=== PATIENT | female | born 1970 | race Caucasian/White ===

== ENCOUNTER 2017-01-20 18:29 | Emergency (ER) | payer OTHER ==
[~2017-01-20] VITALS: Wt 52.2 kg
[~2017-01-20 18:29] MED LIST: ANAPROX DS550 MG PO; ANUSOL1 EACH PO; ASPIRIN ENTERIC81 M1 PO; AURALGAN 54 MG/10 ML OT; BACTRIM DS 8001 TA1 PO; BACTROBAN CREAM15 GM PO; CIPRO500 MG PO; CIPRODEX 0.3%-7.5 ML OT; CLARITIN-D 10 M1 T21 PO; CLARITIN-D 12 H1 TAB PO; CLARITIN10 MG PO; DOXYCYCLINE MO100 MG PO; FLAGYL500 MG PO; LEVSIN0.125 M1 SL; Lortab 5/500 501 TAB PO; MOTRIN600 MG PO; MOTRIN800 MG PO; NKHM; PEPCID20 MG PO; PERCOCET 325 MG1 TA2 PO; PREDNISONE20 M1 PO; Phenergan25 MG PO; ROBITUSSIN AC 110 ML PO; TRAMADOL HCL50 MG PO; TYLENOL325 M1 PO; ZITHROMAX Z PA250 MG PO; ZITHROMAX250 MG PO
[2017-01-20 18:56] LABS: BASO # 0.1 10*3/uL (0.0-0.1); BASO % 0.6 % (0.0-1.0); EOS # 0.2 10*3/uL (0.0-0.4); EOS % 2.2 % (1.0-4.0); HEMATOCRIT 42.2 % (37.0-47.0); HEMOGLOBIN 14.8 g/dl (12.0-16.0); LYMPH # 2.8 10*3/uL (1.3-4.4); MEAN CELL VOLUME 90.9 fl (81.0-99.0); MEAN CORPUSCULAR HGB 31.9 pg (27.0-31.0); MEAN CORPUSCULAR HGB CONC 35.1 g/dl (33.0-37.0); MEAN PLATELET VOLUME 10.8 fl (9.6-12.3); MONO # 1.3 10*3/uL (0.1-1.0); MONO % 11.3 % (3.0-9.0); NEUT # 6.7 10*3/uL (2.3-7.9); NEUT % 60.6 % (47.0-73.0); PLATELET COUNT AUTOMATED 272 10*3/uL (130-400); RED BLOOD COUNT 4.64 10*6/uL (4.10-5.10); RED CELL DISTRI WIDTH 12.7 % (0-14.5)
[2017-01-20 19:33] LABS: ALKALINE PHOSPHATASE 89 U/L (45-117); BUN 7 mg/dl (7-24); CHLORIDE 108 mmol/L (98-107); CREATININE 0.73 mg/dL (0.55-1.02); LIPASE 80 U/L (73-393); POTASSIUM 3.5 mmol/L (3.5-5.1); SGOT/AST 28 IU/L (3-35); SGPT/ALT 31 U/L (12-78); SODIUM 141 mmol/L (136-145); TOTAL PROTEIN 7.1 gm/dL (6.4-8.2)
[2017-01-20] MEDS ORDERED: ROBITUSSIN DM 105 ML PO (19:39)
[2017-01-20] MEDS ORDERED: PHENERGAN25 M3 PO (19:39)
[2017-01-20] MEDS ORDERED: FLONASE ALLERG9.9 ML NAS (19:39)
[2017-01-20] MEDS ORDERED: CLARITIN10 MG PO (19:39)
[2017-01-20 21:38] VITALS: BP 103/68
== END 2017-01-20 21:55 | disposition home or self-care (01) ==
LOC: ED 18:29
PROVIDERS: Nurse Practitioner Family
DX: B34.9 Viral infection, unspecified (principal); R03.0 Elevated blood-pressure reading, without diagnosis of hypertension; Z88.0 Allergy status to penicillin; Z91.040 Latex allergy status; Z88.8 Allergy status to other drugs, medicaments and biological substances

== ENCOUNTER 2017-02-06 21:40 | Inpatient (IN) | payer OTHER ==
[~2017-02-06] VITALS: Ht 147.3 cm; Wt 64.2 kg
[~2017-02-06 21:40] MED LIST changes: +FLONASE ALLERG9.9 ML NAS; +PHENERGAN25 M3 PO; +ROBITUSSIN DM 105 ML PO
[2017-02-06 21:44] VITALS: BP 114/72
[2017-02-06 22:03] LABS: BASO # 0.1 10*3/uL (0.0-0.1); BASO % 0.5 % (0.0-1.0); EOS # 0.3 10*3/uL (0.0-0.4); EOS % 2.9 % (1.0-4.0); HEMATOCRIT 40.9 % (37.0-47.0); HEMOGLOBIN 14.1 g/dl (12.0-16.0); LYMPH # 2.9 10*3/uL (1.3-4.4); LYMPH % 26.5 % (27.0-41.0); MEAN CELL VOLUME 93.2 fl (81.0-99.0); MEAN CORPUSCULAR HGB 32.1 pg (27.0-31.0); MEAN CORPUSCULAR HGB CONC 34.5 g/dl (33.0-37.0); MONO % 9.1 % (3.0-9.0); NEUT # 6.6 10*3/uL (2.3-7.9); NEUT % 60.6 % (47.0-73.0); PLATELET COUNT AUTOMATED 294 10*3/uL (130-400); RED BLOOD COUNT 4.39 10*6/uL (4.10-5.10); RED CELL DISTRI WIDTH 12.8 % (0-14.5); WHITE BLOOD COUNT 10.9 10*3/uL (4.8-10.8)
[2017-02-06 22:13] LABS: ACT PARTIAL THROMBO TIME 26.4 SECONDS (20.8-31.5)
[2017-02-06 22:20] LABS: ALBUMIN 3.1 gm/dl (3.1-4.5); BUN 18 mg/dl (7-24); CHLORIDE 109 mmol/L (98-107); CREATININE 0.82 mg/dL (0.55-1.02); POTASSIUM 3.8 mmol/L (3.5-5.1); SGOT/AST 12 IU/L (3-35); SGPT/ALT 28 U/L (12-78); SODIUM 141 mmol/L (136-145); TOTAL PROTEIN 7.3 gm/dL (6.4-8.2)
[2017-02-06 22:22] LABS: ALKALINE PHOSPHATASE 102 U/L (45-117)
[2017-02-06 22:23] LABS: TROPONIN I < 0.015 ng/ml (<0.045)
--- NOTE | 2017-02-06 22:39 | NUR ---
PT STATES CHEST PAIN IS RELIEVED. BUT PT STILL HAS PAIN IN LEFT ARM
[2017-02-07] VITALS: BP 125/74
--- NOTE | 2017-02-07 00:08 | NUR ---
REPORT GIVEN TO KYAW MARION
[2017-02-07 00:45] VITALS: BP 131/70; BP 133/70; BP 138/70
--- NOTE | 2017-02-07 01:03 | NUR ---
PATIENT STATES SHE DOES NOT TAKE ANY HOME MEDICATIONS, PRESCRIBED OR OVER THE COUNTER.
[2017-02-07 03:49] LABS: BASO # 0.1 10*3/uL (0.0-0.1); BASO % 0.7 % (0.0-1.0); EOS # 0.3 10*3/uL (0.0-0.4); HEMATOCRIT 40.6 % (37.0-47.0); HEMOGLOBIN 14.1 g/dl (12.0-16.0); LYMPH # 3.4 10*3/uL (1.3-4.4); LYMPH % 35.6 % (27.0-41.0); MEAN CELL VOLUME 91.4 fl (81.0-99.0); MEAN CORPUSCULAR HGB 31.8 pg (27.0-31.0); MEAN CORPUSCULAR HGB CONC 34.7 g/dl (33.0-37.0); MEAN PLATELET VOLUME 9.9 fl (9.6-12.3); MONO % 10.1 % (3.0-9.0); NEUT # 4.9 10*3/uL (2.3-7.9); NEUT % 50.4 % (47.0-73.0); PLATELET COUNT AUTOMATED 283 10*3/uL (130-400); RED BLOOD COUNT 4.44 10*6/uL (4.10-5.10); RED CELL DISTRI WIDTH 12.9 % (0-14.5); WHITE BLOOD COUNT 9.6 10*3/uL (4.8-10.8)
[2017-02-07 04:00] VITALS: BP 143/68
[2017-02-07 04:02] LABS: BUN 17 mg/dl (7-24); CHLORIDE 109 mmol/L (98-107); CREATININE 0.75 mg/dL (0.55-1.02); SODIUM 141 mmol/L (136-145)
[2017-02-07 04:07] LABS: CHOLESTEROL 236 mg/dL (<200); HDL CHOLESTEROL 58 mg/dl (40-60); LDL CHOLESTEROL 145 mg/dL (9-159); PHOSPHOROUS 3.5 mg/dL (2.5-4.9); TRIGLYCERIDES 167 mg/dl (<150); VLDL CHOLESTEROL 33 mg/dL (6-40)
[2017-02-07 08:00] VITALS: BP 124/65
--- NOTE | 2017-02-07 08:30 | NUR ---
Foot Roentgenologist in to talk to patient. Patient states lives at HOME ALONE with . There are 0 steps in the home. Physician: DR OGDEN Pharmacy: [facility] services: NONE Patient's level of ADLs: INDEPENDENT Patient has working utilities: YES DME: NONE Follow-up physician's appointment after d/c: WILL BE MADE PRIOR TO DC Does patient want to access PORTAL?: Discharge plan HOME. NOAM WILSON
--- NOTE | 2017-02-07 10:00 | NUR ---
AM MEDS GIVEN.
[2017-02-07 12:00] VITALS: BP 127/69
[2017-02-07] MEDS ORDERED: VITAMIN D31000 UNI1 PO (12:29)
[2017-02-07] MEDS ORDERED: ASPIRIN CHEWABL81 MG PO (12:29)
--- NOTE | 2017-02-07 13:32 | NUR ---
HEP LOCK REMOVED FOR DISCHARGE. Discharge instructions reviewed with patient/family. Patient receptive and verbalizes understanding. Follow-up care arranged. Written instructions given to patient/family. JOE CAMPOVERDE
== END 2017-02-07 13:32 | disposition home or self-care (01) | DRG 206 ==
LOC: ED 21:40 → 5E 23:47 → EDHOLD 23:47 → 5E 23:56
PROVIDERS: Emergency Medicine; Student in an Organized Health Care Education/Training Program; ADMIT Internal Medicine
DX: M94.0 Chondrocostal junction syndrome [Tietze] (principal); E44.0 Moderate protein-calorie malnutrition; E87.8 Other disorders of electrolyte and fluid balance, not elsewhere classified; D72.829 Elevated white blood cell count, unspecified; K21.9 Gastro-esophageal reflux disease without esophagitis; F41.9 Anxiety disorder, unspecified; Z79.82 Long term (current) use of aspirin; Z79.899 Other long term (current) drug therapy; Z88.0 Allergy status to penicillin; Z88.1 Allergy status to other antibiotic agents; Z88.8 Allergy status to other drugs, medicaments and biological substances; Z91.040 Latex allergy status; Z98.51 Tubal ligation status; Z90.710 Acquired absence of both cervix and uterus; Z90.49 Acquired absence of other specified parts of digestive tract; Z90.721 Acquired absence of ovaries, unilateral; Z98.891 History of uterine scar from previous surgery; Z82.3 Family history of stroke; Z82.49 Family history of ischemic heart disease and other diseases of the circulatory system; Z68.29 Body mass index [BMI] 29.0-29.9, adult

== ENCOUNTER 2017-07-13 10:41 | Emergency (ER) | payer OTHER ==
[~2017-07-13] VITALS: Wt 52.2 kg
[~2017-07-13 10:41] MED LIST changes: +ASPIRIN CHEWABL81 MG PO; +VITAMIN D31000 UNI1 PO
[2017-07-13 10:54] VITALS: BP 147/72
[2017-07-13 11:51] LABS: BASO # 0.1 10*3/uL (0.0-0.1); BASO % 0.9 % (0.0-1.0); EOS # 0.2 10*3/uL (0.0-0.4); EOS % 2.4 % (1.0-4.0); HEMATOCRIT 43.7 % (37.0-47.0); HEMOGLOBIN 15.7 g/dl (12.0-16.0); LYMPH % 23.6 % (27.0-41.0); MEAN CELL VOLUME 89.7 fl (81.0-99.0); MEAN CORPUSCULAR HGB 32.2 pg (27.0-31.0); MEAN CORPUSCULAR HGB CONC 35.9 g/dl (33.0-37.0); MEAN PLATELET VOLUME 11.6 fl (9.6-12.3); MONO # 0.9 10*3/uL (0.1-1.0); MONO % 10.2 % (3.0-9.0); NEUT # 5.3 10*3/uL (2.3-7.9); NEUT % 62.7 % (47.0-73.0); PLATELET COUNT AUTOMATED 318 10*3/uL (130-400); RED BLOOD COUNT 4.87 10*6/uL (4.10-5.10); RED CELL DISTRI WIDTH 12.7 % (0-14.5); WHITE BLOOD COUNT 8.5 10*3/uL (4.8-10.8)
[2017-07-13 12:45] LABS: ACT PARTIAL THROMBO TIME 25.7 SECONDS (20.8-31.5)
[2017-07-13 12:53] LABS: ALBUMIN 3.5 gm/dl (3.1-4.5); ALKALINE PHOSPHATASE 85 U/L (45-117); BUN 12 mg/dl (7-24); CHLORIDE 109 mmol/L (98-107); CREATININE 0.99 mg/dL (0.55-1.02); LIPASE 521 U/L (73-393); POTASSIUM 3.7 mmol/L (3.5-5.1); SGOT/AST 17 IU/L (3-35); SGPT/ALT 22 U/L (12-78); SODIUM 140 mmol/L (136-145); TOTAL PROTEIN 7.3 gm/dL (6.4-8.2)
[2017-07-13 12:54] LABS: TROPONIN I < 0.015 ng/ml (<0.045)
[2017-07-13 13:00] LABS: BILIRUBIN NEGATIVE (NEGATIVE); BLOOD TRACE-INTACT (NEGATIVE); CLARITY CLOUDY (CLEAR); COLOR YELLOW (YELLOW); GLUCOSE NEGATIVE (NEGATIVE); KETONE NEGATIVE (NEGATIVE); LEUKO ESTERASE 2+ (NEGATIVE); NITRITE NEGATIVE (NEGATIVE); PH 6.5 (5.0-9.0); SPECIFIC GRAVITY 1.025 (1.005-1.030); UROBILINOGEN 0.2 E.U./dl (0.2-1.0)
[2017-07-13 13:08] LABS: BACTERIA TRACE; MUCOUS 2+
[2017-07-13 13:09] LABS: EPITHELIAL CELLS 16-20; WBC 21-30 wbc/hpf (0-5)
[2017-07-13] MEDS ORDERED: CIPRO500 MG PO (14:14)
== END 2017-07-13 13:16 | disposition home or self-care (01) ==
LOC: ED 10:41
PROVIDERS: Physician Assistant
DX: N39.0 Urinary tract infection, site not specified (principal); A59.9 Trichomoniasis, unspecified; Z88.0 Allergy status to penicillin; Z88.8 Allergy status to other drugs, medicaments and biological substances; Z91.040 Latex allergy status

== ENCOUNTER 2017-07-16 11:14 | Emergency (ER) | payer OTHER ==
[~2017-07-16] VITALS: Ht 147.3 cm; Wt 52.2 kg
[2017-07-16 11:56] LABS: BASO # 0.1 10*3/uL (0.0-0.1); BASO % 0.9 % (0.0-1.0); EOS % 0.7 % (1.0-4.0); HEMATOCRIT 42.4 % (37.0-47.0); HEMOGLOBIN 15.4 g/dl (12.0-16.0); LYMPH # 1.8 10*3/uL (1.3-4.4); LYMPH % 32.2 % (27.0-41.0); MEAN CELL VOLUME 88.1 fl (81.0-99.0); MEAN CORPUSCULAR HGB CONC 36.3 g/dl (33.0-37.0); MONO # 0.8 10*3/uL (0.1-1.0); MONO % 14.3 % (3.0-9.0); NEUT % 51.9 % (47.0-73.0); PLATELET COUNT AUTOMATED 220 10*3/uL (130-400); RED BLOOD COUNT 4.81 10*6/uL (4.10-5.10); RED CELL DISTRI WIDTH 12.3 % (0-14.5); WHITE BLOOD COUNT 5.7 10*3/uL (4.8-10.8)
[2017-07-16 12:15] LABS: ALBUMIN 3.6 gm/dl (3.1-4.5); ALKALINE PHOSPHATASE 83 U/L (45-117); BUN 10 mg/dl (7-24); CHLORIDE 105 mmol/L (98-107); CREATININE 0.86 mg/dL (0.55-1.02); POTASSIUM 3.6 mmol/L (3.5-5.1); SGOT/AST 28 IU/L (3-35); SGPT/ALT 28 U/L (12-78); SODIUM 138 mmol/L (136-145); TOTAL PROTEIN 7.3 gm/dL (6.4-8.2)
[2017-07-16 12:16] LABS: TROPONIN I < 0.015 ng/ml (<0.045)
[2017-07-16 14:13] VITALS: BP 109/71
[2017-07-16] MEDS ORDERED: LEVOFLOXACIN500 MG PO (15:00)
[2017-07-16] MEDS ORDERED: PHENERGAN25 M3 PO (15:00)
== END 2017-07-16 15:05 | disposition home or self-care (01) ==
LOC: ED 11:14
PROVIDERS: Emergency Medicine
DX: J18.9 Pneumonia, unspecified organism (principal); F17.200 Nicotine dependence, unspecified, uncomplicated; E78.00 Pure hypercholesterolemia, unspecified; Z88.0 Allergy status to penicillin; Z91.040 Latex allergy status; Z88.8 Allergy status to other drugs, medicaments and biological substances; Z98.51 Tubal ligation status; Z90.710 Acquired absence of both cervix and uterus; Z90.49 Acquired absence of other specified parts of digestive tract

== ENCOUNTER 2017-08-22 12:39 | Emergency (ER) | payer OTHER ==
[~2017-08-22] VITALS: Ht 147.3 cm; Wt 52.2 kg
[2017-08-22 12:39] VITALS: BP 106/63
[~2017-08-22 12:39] MED LIST changes: +LEVOFLOXACIN500 MG PO
[2017-08-22] MEDS ORDERED: PROAIR HFA8.5 GM INH (12:46)
[2017-08-22] MEDS ORDERED: CLARITHROMYCIN500 MG PO (12:46)
[2017-08-22] MEDS ORDERED: NAPROSYN500 MG PO (12:54)
[2017-08-22] MEDS ORDERED: CYCLOBENZAPRINE10 MG PO (12:54)
== END 2017-08-22 12:55 | disposition home or self-care (01) ==
LOC: ED 12:39
DX: M54.6 Pain in thoracic spine (principal); E78.00 Pure hypercholesterolemia, unspecified; Z98.51 Tubal ligation status; Z90.710 Acquired absence of both cervix and uterus; Z90.49 Acquired absence of other specified parts of digestive tract; Z98.890 Other specified postprocedural states; Z79.899 Other long term (current) drug therapy; Z88.0 Allergy status to penicillin; Z88.8 Allergy status to other drugs, medicaments and biological substances; Z91.040 Latex allergy status; Z79.82 Long term (current) use of aspirin

== ENCOUNTER → 2018-04-13 | Outpatient (CLI) | payer OTHER ==
[~2018-04-13] MED LIST changes: +CLARITHROMYCIN500 MG PO; +CYCLOBENZAPRINE10 MG PO; +NAPROSYN500 MG PO; +PROAIR HFA8.5 GM INH
[2018-04-13 08:42] LABS: HEMATOCRIT 41.8 % (37.0-47.0); HEMOGLOBIN 14.3 g/dl (12.0-16.0); MEAN CELL VOLUME 93.9 fl (81.0-99.0); MEAN CORPUSCULAR HGB 32.1 pg (27.0-31.0); MEAN CORPUSCULAR HGB CONC 34.2 g/dl (33.0-37.0); MEAN PLATELET VOLUME 9.9 fl (9.6-12.3); RED BLOOD COUNT 4.45 10*6/uL (4.10-5.10); RED CELL DISTRI WIDTH 12.7 % (0-14.5)
[2018-04-13 09:12] LABS: ALBUMIN 3.3 gm/dl (3.1-4.5); ALKALINE PHOSPHATASE 80 U/L (45-117); BUN 14 mg/dl (7-24); CHLORIDE 109 mmol/L (98-107); CHOLESTEROL 220 mg/dL (<200); CREATININE 0.81 mg/dL (0.55-1.02); HDL CHOLESTEROL 70 mg/dl (40-60); LDL CHOLESTEROL 136 mg/dL (9-159); POTASSIUM 4.1 mmol/L (3.5-5.1); SGOT/AST 21 IU/L (3-35); SGPT/ALT 22 U/L (12-78); SODIUM 141 mmol/L (136-145); TOTAL PROTEIN 7.1 gm/dL (6.4-8.2); TRIGLYCERIDES 70 mg/dl (<150); VLDL CHOLESTEROL 14 mg/dL (6-40)
== END | disposition home or self-care (01) ==
LOC: LAB 08:03
PROVIDERS: Family Medicine
DX: E78.00 Pure hypercholesterolemia, unspecified (principal); R10.9 Unspecified abdominal pain; E55.9 Vitamin D deficiency, unspecified; R53.83 Other fatigue

== ENCOUNTER 2018-04-20 17:48 | Emergency (ER) | payer OTHER ==
[~2018-04-20] VITALS: Ht 144.7 cm; Wt 51.3 kg
--- NOTE | ~2018-04-20 | EKG ---
[place], [place] ELECTROCARDIOGRAM REPORT NAME: BALAJI JEFFERS I UNIT #: [id number] ROOM: DOCTOR: LAMBERT DRAFT REPORT BIRTHDATE: [birth year] [facility] Test Date: 2018-04-20 Test Time: 17:52:21 Pat Name: BALAJI JEFFERS Department: Room: Gender: F Cloth Worker: Sandra Lewis : 1970 Requested By: JAMESON PARNELL Order Number: [id number] Reading MD: Gil Li MD Measurements Intervals [place] Rate: 83 P: 68 ME: 102 QRS: 94 QRSD: 79 T: 40 QT: 355 QTc: 418 Interpretive Statements Sinus rhythm Short ME interval Borderline right axis deviation Compared to ECG 12/05/2017 11:25:53 No significant changes Electronically Signed On 04-24-2018 11:49:35 PST by Gil Li MD CM:EKGRPT:ELECTROCARDIOGRAM REPORT [id number] JAMESON WEBB DRAFT REPORT JAMESON PARNELL DO
[2018-04-20 18:05] LABS: BASO # 0.1 10*3/uL (0.0-0.1); BASO % 0.6 % (0.0-1.0); EOS # 0.1 10*3/uL (0.0-0.4); EOS % 1.8 % (1.0-4.0); HEMATOCRIT 43.2 % (37.0-47.0); HEMOGLOBIN 15.1 g/dl (12.0-16.0); LYMPH # 1.7 10*3/uL (1.3-4.4); LYMPH % 20.8 % (27.0-41.0); MEAN CELL VOLUME 92.3 fl (81.0-99.0); MEAN CORPUSCULAR HGB 32.3 pg (27.0-31.0); MEAN PLATELET VOLUME 9.8 fl (9.6-12.3); MONO # 0.6 10*3/uL (0.1-1.0); NEUT # 5.5 10*3/uL (2.3-7.9); NEUT % 68.5 % (47.0-73.0); PLATELET COUNT AUTOMATED 269 10*3/uL (130-400); RED BLOOD COUNT 4.68 10*6/uL (4.10-5.10); RED CELL DISTRI WIDTH 12.6 % (0-14.5)
[2018-04-20 18:15] LABS: ACT PARTIAL THROMBO TIME 25.9 SECONDS (20.8-31.5)
[2018-04-20 18:22] LABS: BILIRUBIN 2+ (NEGATIVE); BLOOD TRACE-INTACT (NEGATIVE); CLARITY CLOUDY (CLEAR); GLUCOSE NEGATIVE (NEGATIVE); KETONE 3+ (NEGATIVE); LEUKO ESTERASE TRACE (NEGATIVE); NITRITE NEGATIVE (NEGATIVE); SPECIFIC GRAVITY >= 1.030 (1.005-1.030)
[2018-04-20 18:23] LABS: ALBUMIN 3.6 gm/dl (3.1-4.5); ALKALINE PHOSPHATASE 112 U/L (45-117); BUN 11 mg/dl (7-24); CHLORIDE 105 mmol/L (98-107); CREATININE 0.75 mg/dL (0.55-1.02); POTASSIUM 3.6 mmol/L (3.5-5.1); SGOT/AST 58 IU/L (3-35); SGPT/ALT 54 U/L (12-78); SODIUM 137 mmol/L (136-145); TOTAL PROTEIN 7.6 gm/dL (6.4-8.2)
[2018-04-20 18:24] LABS: TROPONIN I < 0.015 ng/ml (<0.045)
[2018-04-20 18:29] LABS: BACTERIA 3+; COLOR YELLOW (YELLOW); EPITHELIAL CELLS 60-65; MUCOUS 1+
[2018-04-20 18:47] VITALS: BP 118/26
== END 2018-04-20 19:50 | disposition left against medical advice (07) ==
LOC: ED 17:48
PROVIDERS: Emergency Medicine; Nurse Practitioner Family
DX: R07.9 Chest pain, unspecified (principal); R06.02 Shortness of breath; M25.512 Pain in left shoulder; M54.2 Cervicalgia; R11.0 Nausea; R51 Headache; Z88.0 Allergy status to penicillin; Z88.6 Allergy status to analgesic agent; Z91.040 Latex allergy status; Z88.8 Allergy status to other drugs, medicaments and biological substances

== ENCOUNTER 2018-08-04 17:13 | Emergency (ER) | payer OTHER ==
[~2018-08-04] VITALS: Wt 52.2 kg
[2018-08-04 17:13] VITALS: BP 129/91
[2018-08-04] MEDS ORDERED: NAPROSYN500 MG PO (19:55)
== END 2018-08-04 20:10 | disposition home or self-care (01) ==
LOC: ED 17:13
DX: M79.622 Pain in left upper arm (principal); Z90.710 Acquired absence of both cervix and uterus; Z90.49 Acquired absence of other specified parts of digestive tract; Z88.8 Allergy status to other drugs, medicaments and biological substances; Z88.0 Allergy status to penicillin; Z91.040 Latex allergy status; Z79.899 Other long term (current) drug therapy; X58.XXXA Exposure to other specified factors, initial encounter; Y93.89 Activity, other specified; Y92.89 Other specified places as the place of occurrence of the external cause; Y99.8 Other external cause status

== ENCOUNTER 2018-08-06 11:03 | Emergency (ER) | payer OTHER ==
[~2018-08-06] VITALS: Ht 144.7 cm; Wt 52.2 kg
--- NOTE | ~2018-08-06 | EKG ---
[place], [place] ELECTROCARDIOGRAM REPORT NAME: BALAJI JEFFERS I UNIT #: [id number] ROOM: DOCTOR: EPIPHANY DRAFT REPORT BIRTHDATE: [birth year] [facility] Test Date: 2018-08-06 Test Time: 11:06:00 Pat Name: BALAJI JEFFERS Department: Room: [facility] Gender: F Insurance Verification Specialist: : 1970 Requested By: NATHANIEL DE LA FUENTE Order Number: [id number] Reading MD: Brigido Andersen MD Measurements Intervals [place] Rate: 83 P: 43 CT: 123 QRS: 87 QRSD: 82 T: 6 QT: 345 QTc: 406 Interpretive Statements Sinus rhythm Abnormal R-wave progression, late transition Borderline T wave abnormalities Compared to ECG 04/20/2018 17:52:21 T-wave abnormality now present Short CT interval no longer present Electronically Signed On 08-07-2018 4:20:35 PDT by Brigido Andersen MD CM:EKGRPT:ELECTROCARDIOGRAM REPORT [id number] NATHANIEL VERDIN DRAFT REPORT NATHANIEL DE LA FUENTE MD
[2018-08-06 11:07] VITALS: BP 143/76
[2018-08-06 11:15] LABS: BASO # 0.1 10*3/uL (0.0-0.1); BASO % 0.7 % (0.0-1.0); EOS # 0.4 10*3/uL (0.0-0.4); EOS % 3.7 % (1.0-4.0); HEMATOCRIT 45.7 % (37.0-47.0); HEMOGLOBIN 16.1 g/dl (12.0-16.0); LYMPH # 1.4 10*3/uL (1.3-4.4); LYMPH % 14.1 % (27.0-41.0); MEAN CELL VOLUME 91.2 fl (81.0-99.0); MEAN CORPUSCULAR HGB 32.1 pg (27.0-31.0); MEAN CORPUSCULAR HGB CONC 35.2 g/dl (33.0-37.0); MONO # 1.2 10*3/uL (0.1-1.0); MONO % 11.9 % (3.0-9.0); NEUT # 6.8 10*3/uL (2.3-7.9); NEUT % 69.4 % (47.0-73.0); PLATELET COUNT AUTOMATED 261 10*3/uL (130-400); RED BLOOD COUNT 5.01 10*6/uL (4.10-5.10); RED CELL DISTRI WIDTH 13.1 % (0-14.5); WHITE BLOOD COUNT 9.8 10*3/uL (4.8-10.8)
[2018-08-06 11:34] LABS: ALBUMIN 3.5 gm/dl (3.1-4.5); ALKALINE PHOSPHATASE 246 U/L (45-117); BUN 12 mg/dl (7-24); CHLORIDE 106 mmol/L (98-107); POTASSIUM 3.6 mmol/L (3.5-5.1); SGOT/AST 141 IU/L (3-35); SGPT/ALT 326 U/L (12-78); SODIUM 138 mmol/L (136-145); TOTAL PROTEIN 7.7 gm/dL (6.4-8.2)
[2018-08-06 11:36] LABS: ACT PARTIAL THROMBO TIME 24.1 SECONDS (20.8-31.5); INTERNATIONAL NORM RATIO 0.9 (2.0-3.5); TROPONIN I < 0.015 ng/ml (<0.045)
[2018-08-06 12:24] LABS: BILIRUBIN NEGATIVE (NEGATIVE); BLOOD TRACE-INTACT (NEGATIVE); CLARITY CLOUDY (CLEAR); COLOR YELLOW (YELLOW); GLUCOSE NEGATIVE (NEGATIVE); KETONE NEGATIVE (NEGATIVE); LEUKO ESTERASE NEGATIVE (NEGATIVE); NITRITE POSITIVE (NEGATIVE); PH 5.5 (5.0-9.0)
[2018-08-06] MEDS ORDERED: Phenergan25 MG PO (12:38)
[2018-08-06 12:40] LABS: BACTERIA 3+; EPITHELIAL CELLS 30-40
[2018-08-06 13:26] VITALS: BP 121/72
== END 2018-08-06 14:07 | disposition home or self-care (01) ==
LOC: ED 11:03 → EDHOLD 12:20 → ED 12:20
PROVIDERS: Emergency Medicine
DX: E86.0 Dehydration (principal); N17.9 Acute kidney failure, unspecified; R11.10 Vomiting, unspecified; R74.0 Nonspecific elevation of levels of transaminase and lactic acid dehydrogenase [LDH]; Z98.51 Tubal ligation status; Z90.710 Acquired absence of both cervix and uterus; Z98.890 Other specified postprocedural states; Z88.0 Allergy status to penicillin; Z88.8 Allergy status to other drugs, medicaments and biological substances; Z91.040 Latex allergy status; Z88.6 Allergy status to analgesic agent; Z79.82 Long term (current) use of aspirin

== ENCOUNTER → 2018-12-26 | Outpatient (CLI) | payer OTHER | END | disposition home or self-care (01) | LOC: RAD 08:00 | DX: K21.9 Gastro-esophageal reflux disease without esophagitis (principal); R13.10 Dysphagia, unspecified; Z90.49 Acquired absence of other specified parts of digestive tract ==

== ENCOUNTER → 2019-03-28 | Outpatient (CLI) | payer MEDICAID | END | disposition home or self-care (01) | LOC: RAD 12:39 | DX: R91.8 Other nonspecific abnormal finding of lung field (principal) ==

== ENCOUNTER 2022-10-18 10:33 | Emergency (ER) | payer OTHER ==
[~2022-10-18] VITALS: Ht 142.2 cm; Wt 52.2 kg
[2022-10-18 10:43] VITALS: BP 148/70
== END 2022-10-18 11:15 | disposition home or self-care (01) ==
LOC: ED 10:33
DX: R20.2 Paresthesia of skin (principal); Z88.0 Allergy status to penicillin; Z88.5 Allergy status to narcotic agent; Z91.040 Latex allergy status; Z88.8 Allergy status to other drugs, medicaments and biological substances; Z98.51 Tubal ligation status; Z90.710 Acquired absence of both cervix and uterus; Z90.49 Acquired absence of other specified parts of digestive tract; Z98.890 Other specified postprocedural states

== ENCOUNTER → 2024-10-09 | Outpatient (CLI) | payer OTHER ==
[2024-10-09 10:48] LABS: HEMATOCRIT 48.3 % (37.0-47.0); MEAN CORPUSCULAR HGB 31.9 pg (27.0-31.0); MEAN PLATELET VOLUME 10.1 fl (9.6-12.3); RED BLOOD COUNT 5.14 10*6/uL (4.10-5.10); RED CELL DISTRI WIDTH 13.3 % (0-14.5); WHITE BLOOD COUNT 9.9 10*3/uL (4.8-10.8)
[2024-10-09 11:15] LABS: ALKALINE PHOSPHATASE 84 U/L (46-116); BUN 11 mg/dl (9-23); CHLORIDE 107 mmol/L (98-107); CHOLESTEROL 282 mg/dL (<200); LDL CHOLESTEROL 195 mg/dL (9-159); POTASSIUM 4.1 mmol/L (3.4-5.1); SGPT/ALT 9 U/L (5-49); TOTAL PROTEIN 7.7 gm/dL (6.0-8.0); TRIGLYCERIDES 86 mg/dl (<150)
[2024-10-09 11:28] LABS: VITAMIN D, 25-HYDROXY 31.7 ng/mL (30-100)
== END | disposition home or self-care (01) ==
LOC: LAB 10:02
PROVIDERS: ATTEND Family Medicine
DX: E78.00 Pure hypercholesterolemia, unspecified (principal); E55.9 Vitamin D deficiency, unspecified; E74.9 Disorder of carbohydrate metabolism, unspecified; R53.83 Other fatigue; L03.119 Cellulitis of unspecified part of limb

== ENCOUNTER 2024-10-14 07:44 | Emergency (ER) | payer OTHER ==
[~2024-10-14] VITALS: Ht 142.2 cm; Wt 52.2 kg
[2024-10-14 07:49] VITALS: BP 116/79
[2024-10-14] MEDS ORDERED: NEOSPORIN OIN28.3 GM T (08:16)
[2024-10-14] MEDS ORDERED: HYDROXYZINE HCL25 MG PO (08:16)
== END 2024-10-14 08:17 | disposition home or self-care (01) ==
LOC: ED 07:44
DX: G47.00 Insomnia, unspecified (principal); L03.019 Cellulitis of unspecified finger; Z79.899 Other long term (current) drug therapy; Z88.0 Allergy status to penicillin; Z88.6 Allergy status to analgesic agent; Z88.8 Allergy status to other drugs, medicaments and biological substances; Z91.040 Latex allergy status; Z90.49 Acquired absence of other specified parts of digestive tract; Z90.710 Acquired absence of both cervix and uterus; Z98.51 Tubal ligation status; Z98.890 Other specified postprocedural states

== ENCOUNTER → 2024-10-28 | Outpatient (CLI) | payer OTHER ==
[~2024-10-28] MED LIST changes: +HYDROXYZINE HCL25 MG PO; +MACROBID100 M1 PO; +NEOSPORIN OIN28.3 GM T
[2024-10-30 02:06] LABS: TESTOS, FREE 3.5 pg/mL (0.0-4.2)
== END | disposition home or self-care (01) ==
LOC: LAB 11:01
PROVIDERS: ATTEND Family Medicine
DX: E74.00 Glycogen storage disease, unspecified (principal); N80.00 Endometriosis of the uterus, unspecified; I68.0 Cerebral amyloid angiopathy; F41.1 Generalized anxiety disorder; F31.9 Bipolar disorder, unspecified

== ENCOUNTER 2024-10-31 15:38 | Emergency (ER) | payer OTHER ==
[~2024-10-31] VITALS: Wt 49.9 kg
[~2024-10-31 15:38] MED LIST changes: -MACROBID100 M1 PO
[2024-10-31 16:10] VITALS: BP 141/95
[2024-10-31 16:48] LABS: BILIRUBIN Negative (Negative); BLOOD Negative (Negative); CLARITY Cloudy (Clear); COLOR Yellow (Yellow); KETONE 1+ (Negative); LEUKO ESTERASE Negative (Negative); NITRITE Positive (Negative); PH 6.5 (4.5-8.0); SPECIFIC GRAVITY 1.015 (1.001-1.030); UROBILINOGEN 1.0 E.U./dl (0.0-1.0)
[2024-10-31 16:51] LABS: BASO # 0.1 10*3/uL (0.0-0.1); BASO % 0.5 % (0.0-1.0); EOS # 0.1 10*3/uL (0.0-0.4); EOS % 0.6 % (1.0-4.0); MEAN CELL VOLUME 92.4 fl (81.0-99.0); MEAN CORPUSCULAR HGB 31.9 pg (27.0-31.0); MEAN PLATELET VOLUME 10.0 fl (9.6-12.3); MONO # 1.0 10*3/uL (0.1-1.0); MONO % 10.6 % (3.0-9.0); NEUT # 5.5 10*3/uL (2.3-7.9); NEUT % 57.9 % (47.0-73.0); NUCLEATED RED BLOOD CELL 0.0 % (0.0-0.0); NUCLEATED RED BLOOD CELL 0.0 10*3/uL (0.0-0.0); PLATELET COUNT AUTOMATED 308 10*3/uL (130-400); RED CELL DISTRI WIDTH 13.2 % (0-14.5)
[2024-10-31 16:55] LABS: BACTERIA 3+; RBC 0-2 rbc/hpf (0-2)
[2024-10-31 17:19] LABS: BUN 6 mg/dl (9-23); CPK 51 U/L (34-171); SGPT/ALT 18 U/L (5-49)
[2024-10-31] MEDS ORDERED: MACROBID100 M1 PO (17:32)
[2024-10-31] MEDS ORDERED: HYDROXYZINE HCL25 MG PO (17:32)
[2024-10-31] MEDS ORDERED: Nitrofurantoin Monohydrate/N 100 MG CAP PO ONE (17:35)
[2024-10-31] MEDS ORDERED: hydrOXYzine hydrochloride 50 MG/ML VIAL IM ONE (17:35)
== END 2024-10-31 18:47 | disposition home or self-care (01) ==
LOC: ED 15:38
PROVIDERS: Nurse Practitioner Family
DX: L29.9 Pruritus, unspecified (principal); R53.83 Other fatigue; T43.225A Adverse effect of selective serotonin reuptake inhibitors, initial encounter; N39.0 Urinary tract infection, site not specified; Z79.899 Other long term (current) drug therapy; Z88.0 Allergy status to penicillin; Z88.1 Allergy status to other antibiotic agents; Z88.6 Allergy status to analgesic agent; Z91.040 Latex allergy status; Z90.49 Acquired absence of other specified parts of digestive tract; Z90.710 Acquired absence of both cervix and uterus; Z90.89 Acquired absence of other organs; Z98.51 Tubal ligation status; Z98.890 Other specified postprocedural states; Y92.89 Other specified places as the place of occurrence of the external cause

== ENCOUNTER → 2024-11-05 | Outpatient (CLI) | payer OTHER ==
[~2024-11-05] MED LIST changes: +MACROBID100 M1 PO
[2024-11-06 15:07] LABS: ANTI-SMOOTH MUSCLE ANTIBODY 5 Units (0-19)
== END | disposition home or self-care (01) ==
LOC: LAB 09:16
PROVIDERS: ATTEND Family Medicine
DX: E80.0 Hereditary erythropoietic porphyria (principal); R14.0 Abdominal distension (gaseous); R53.83 Other fatigue